=== PATIENT | female | born 1940 | race Caucasian/White ===

== ENCOUNTER 2023-01-18 18:01 | Inpatient (IN) | payer OTHER, MEDICAID ==
[~2023-01-18] VITALS: Ht 160 cm; Wt 60.8 kg
[2023-01-18 18:14] VITALS: BP_SYST 149; PULSE 82; RESP 18; TEMP 98.8; O2SAT 98
[2023-01-18] MEDS ORDERED: NACL 0.9% 1,000 ML IV ONE ×2 (18:30→20:45)
[2023-01-18 19:04] LABS: BASOPHILS # (AUTO) 0.1 K/uL (0.0-0.2); BASOPHILS % (AUTO) 0.6 % (0.0-2.0); EOSINOPHILS # (AUTO) 0.2 K/uL (0.0-0.4); EOSINOPHILS % (AUTO) 2.1 % (0.0-4.0); HEMATOCRIT 40.5 % (36-48); HEMOGLOBIN 13.7 g/dL (12.0-16.0); LYMPHOCYTES # (AUTO) 2.2 K/uL (1.0-5.5); LYMPHOCYTES % (AUTO) 23.6 % (20.5-51.5); MEAN CORPUSCULAR HEMOGLOBIN 34 pg (27-31); MEAN CORPUSCULAR HGB CONC 34 % (32-36); MEAN CORPUSCULAR VOLUME 99 fL (79.0-98.0); MONOCYTES # (AUTO) 0.7 K/uL (0.0-1.0); MONOCYTES % (AUTO) 7.2 % (1.7-9.3); NEUTROPHILS # (AUTO) 6.2 K/uL (1.8-7.7); NEUTROPHILS % (AUTO) 66.5 % (40.0-70.0); PLATELET COUNT (AUTO) 198 K/uL (130-430); RED BLOOD CELL COUNT(AUTO) 4.09 MIL/uL (4.2-6.2); RED CELL DISTRIBUTION WIDTH 13.8 % (9.0-15.0); WHITE BLOOD COUNT (AUTO) 9.3 K/uL (4.8-10.8)
[2023-01-18 19:14] LABS: ANION GAP 8 (5-15); CALCIUM 8.6 mg/dL (8.4-11.0); CHLORIDE 101 mmol/L (98-107); GLUCOSE 111 mg/dL (70-99); UREA NITROGEN, BLOOD 26 mg/dL (8-21)
[2023-01-18 19:21] LABS: ALANINE AMINOTRANSFERASE 31 U/L (12-78); ALBUMIN 3.3 g/dL (3.4-4.8); ASPARTATE AMINOTRANSFERASE 17 U/L (10-37); TOTAL BILIRUBIN 0.2 mg/dL (0.0-1.0)
[2023-01-18 20:18] LABS: BILIRUBIN,URINE NEGATIVE (NEGATIVE); BLOOD, URINE 1+ (NEGATIVE); CLARITY/URINE CLEAR (CLEAR); COLOR,URINE YELLOW (YELLOW); GLUCOSE,URINE NEGATIVE (NEGATIVE); KETONES,URINE NEGATIVE (NEGATIVE); LEUKOCYTE ESTERASE ,URINE NEGATIVE (NEGATIVE); NITRITE, URINE NEGATIVE (NEGATIVE); PROTEIN URINE NEGATIVE (NEGATIVE); UROBILINOGEN,URINE 0.2 (0.2-1.0)
[2023-01-18 20:34] LABS: BACTERIA,URINE FEW /HPF (None Seen)
[2023-01-18] MEDS ORDERED: AZITHROMYCIN 500 MG in NS 250 ML IV ONE (21:15)
[2023-01-18] MEDS ORDERED: cefTRIAXone 1 GM in D5W 50 ML IV ONE (21:15)
[2023-01-18] MEDS ORDERED: ACET325T PO (21:29)
[2023-01-18] MEDS ORDERED: VITD2000 PO (21:29)
[2023-01-18] MEDS ORDERED: GLUC1KIT IJ (21:29)
[2023-01-18] MEDS ORDERED: MULT-1117 PO (21:29)
[2023-01-18] MEDS ORDERED: LEVO750T64 PO (21:29)
[2023-01-18] MEDS ORDERED: cefTRIAXone 1 GM VIAL ONE (21:36)
[2023-01-18] MEDS ORDERED: AZITHROMYCIN 500 MG/VIAL (ZITHROMAX) IV ONE (21:36)
[2023-01-18] MEDS ORDERED: POTASSIUM CHLORIDE 20 MEQ TAB.PRT.SR PO PRN (22:00)
[2023-01-18] MEDS ORDERED: ONDANSETRON HCL 4 MG/2 ML VIAL IVP PRN (22:00)
[2023-01-18] MEDS ORDERED: LORazepam 2 MG/ML VIAL IVP PRN (22:00)
[2023-01-18] MEDS ORDERED: NALOXONE HCL 0.4 MG/ML AMP (NARCAN) IVP PRN ×2 (22:00)
[2023-01-18] MEDS: NACL 0.9% 1,000 ML IV SCH (22:00)
[2023-01-18] MEDS ORDERED: DOCUSATE SODIUM 100 MG CAPSULE PO PRN (22:00)
[2023-01-18] MEDS ORDERED: MORPHINE 2 MG/ML INJ. SYRINGE IVP PRN ×2 (22:00)
[2023-01-18] MEDS ORDERED: MUPIROCIN 2% TOPICAL OINTMENT 22 GM NS PRN (22:00)
[2023-01-18] MEDS ORDERED: ZOLPIDEM TARTRATE 5 MG TABLET PO PRN (22:00)
[2023-01-18] MEDS ORDERED: MAGNESIUM SULFATE 50 ML IV PRN (22:00)
[2023-01-18] MEDS ORDERED: ACETAMINOPHEN 325 MG TABLET PO PRN (22:00)
[2023-01-18 22:53] VITALS: BP_SYST 137; PULSE 80; RESP 18; TEMP 97.4
[2023-01-18 23:54] VITALS: O2SAT 96
[2023-01-19 00:23] VITALS: BP_SYST 144; PULSE 90; RESP 18; TEMP 96.9
[2023-01-19] MEDS: NACL 0.9% 1,000 ML IV SCH ×2 (05:35→21:08)
[2023-01-19 07:00] VITALS: BP_SYST 112; PULSE 67; RESP 18; TEMP 97; O2SAT 95
[2023-01-19] MEDS: HEPARIN SODIUM,PORCINE 5,000 UNITS/ML VIAL SUBCUT SCH ×2 (08:33→20:59)
[2023-01-19] MEDS: cefTRIAXone 1 GM in D5W 50 ML IV SCH (08:44)
[2023-01-19 09:05] VITALS: O2SAT 95
[2023-01-19 12:00] VITALS: BP_SYST 125; PULSE 66; RESP 20; TEMP 98; O2SAT 95
[2023-01-19 21:00] VITALS: BP_SYST 129; PULSE 68; RESP 20; TEMP 97.5; O2SAT 95
[2023-01-19 22:00] VITALS: O2SAT 96
[2023-01-20] VITALS: BP_SYST 137; PULSE 68; RESP 18; TEMP 98; O2SAT 94
[2023-01-20 07:00] VITALS: BP_SYST 140; PULSE 72; RESP 16; TEMP 97.2; O2SAT 95
[2023-01-20 09:00] VITALS: O2SAT 95
[2023-01-20] MEDS: HEPARIN SODIUM,PORCINE 5,000 UNITS/ML VIAL SUBCUT SCH ×2 (09:23→21:08)
[2023-01-20] MEDS: cefTRIAXone 1 GM in D5W 50 ML IV SCH (10:24)
[2023-01-20] MEDS: NACL 0.9% 1,000 ML IV SCH (11:30)
[2023-01-20 13:23] VITALS: BP_SYST 140; PULSE 72; RESP 16; TEMP 97.2; O2SAT 95
[2023-01-20 20:00] VITALS: BP_SYST 128; PULSE 77; RESP 18; TEMP 98.2; O2SAT 94
[2023-01-21] VITALS (7 sets, daily range): BP systolic 105–146; PULSE 67–85; RESP 16–18; TEMP 97.3–98.3; O2SAT 95–96
[2023-01-21] MEDS: NACL 0.9% 1,000 ML IV SCH
[2023-01-21 07:54] LABS: BASOPHILS # (AUTO) 0.1 K/uL (0.0-0.2); BASOPHILS % (AUTO) 0.7 % (0.0-2.0); EOSINOPHILS # (AUTO) 0.3 K/uL (0.0-0.4); EOSINOPHILS % (AUTO) 3.3 % (0.0-4.0); LYMPHOCYTES # (AUTO) 1.7 K/uL (1.0-5.5); LYMPHOCYTES % (AUTO) 20.6 % (20.5-51.5); MEAN CORPUSCULAR HEMOGLOBIN 33 pg (27-31); MEAN CORPUSCULAR HGB CONC 33 % (32-36); MEAN CORPUSCULAR VOLUME 98 fL (79.0-98.0); MONOCYTES # (AUTO) 0.7 K/uL (0.0-1.0); MONOCYTES % (AUTO) 7.9 % (1.7-9.3); NEUTROPHILS # (AUTO) 5.7 K/uL (1.8-7.7); NEUTROPHILS % (AUTO) 67.5 % (40.0-70.0); PLATELET COUNT (AUTO) 202 K/uL (130-430); RED BLOOD CELL COUNT(AUTO) 3.98 MIL/uL (4.2-6.2); RED CELL DISTRIBUTION WIDTH 13.6 % (9.0-15.0); WHITE BLOOD COUNT (AUTO) 8.5 K/uL (4.8-10.8)
[2023-01-21 08:10] LABS: ANION GAP 6 (5-15); CALCIUM 8.1 mg/dL (8.4-11.0); CHLORIDE 105 mmol/L (98-107); CREATININE 0.86 mg/dL (0.55-1.30); GLUCOSE 101 mg/dL (70-99); UREA NITROGEN, BLOOD 20 mg/dL (8-21)
[2023-01-21] MEDS ORDERED: cefTRIAXone 1 GM VIAL IM SCH (09:00)
[2023-01-21] MEDS: HEPARIN SODIUM,PORCINE 5,000 UNITS/ML VIAL SUBCUT SCH (10:39)
== END 2023-01-21 14:00 | DRG 690 ==
LOC: SED 18:01 → STU 21:11 → SMU 01-20 11:17
PROVIDERS: ADMIT General Practice; ATTEND General Practice
DX: N39.0 Urinary tract infection, site not specified (principal); E44.1 Mild protein-calorie malnutrition; E87.20 Acidosis, unspecified; E86.0 Dehydration; G30.9 Alzheimer's disease, unspecified; Z68.23 Body mass index [BMI] 23.0-23.9, adult; F02.80 Dementia in other diseases classified elsewhere, unspecified severity, without behavioral disturbance, psychotic disturbance, mood disturbance, and anxiety; I10 Essential (primary) hypertension
CPT/HCPCS: 36415; 71045; 80048; 80053; 81000; 83037; 83605; 83735; 83880; 84484; 85025; 87081; 87101; 93005; 97110-GP; 97116-GP; 97530-GP; 99285; G0378; J0456; J0696; J1644; J7030; J7060